=== PATIENT | male | born 1960 | race Caucasian/White ===

== ENCOUNTER 2016-12-24 07:11 | Outpatient (CLI) | payer BC ==
[~2016-12-24] VITALS: Ht 177.8 cm; Wt 93.0 kg
[2016-12-24] MEDS ORDERED: METOPROLOL TART25 MG PO (09:09)
[2016-12-24] MEDS ORDERED: ELIQUIS5 MG PO (09:09)
[2016-12-24] MEDS ORDERED: PROTONIX40 MG PO (09:10)
[2016-12-24] MEDS ORDERED: MELOXICAM7.5 MG PO (09:10)
[2016-12-24] MEDS ORDERED: SYNJARDY (09:14)
[2016-12-24] MEDS ORDERED: LIPITOR TAB 2020 MG PO (09:15)
[2016-12-25] MEDS ORDERED: GLUCOPHAGE 500500 MG PO (13:53)
[2016-12-25] MEDS ORDERED: JARDIANCE10 MG PO (13:53)
== END 2016-12-25 14:11 | disposition home or self-care (01) ==
LOC: CATH 07:11 → M/S 11:45 → CATH 12-25 14:11
DX: I48.92 Unspecified atrial flutter (principal); I48.0 Paroxysmal atrial fibrillation; E11.9 Type 2 diabetes mellitus without complications; Z98.890 Other specified postprocedural states; E78.5 Hyperlipidemia, unspecified; Z79.84 Long term (current) use of oral hypoglycemic drugs; Z79.1 Long term (current) use of non-steroidal anti-inflammatories (NSAID); Z79.899 Other long term (current) drug therapy
CPT/HCPCS: 82962; 93005; 93609; 93621; 99152; 99153; C1730; C1733; C1766; J1200; J1644; J1742; J2250; J3010; J7040

== ENCOUNTER 2020-04-28 19:09 | Emergency (ER) | payer BC ==
[~2020-04-28 19:09] MED LIST: ELIQUIS5 MG PO; GLUCOPHAGE 500500 MG PO; JARDIANCE10 MG PO; LIPITOR TAB 2020 MG PO; MELOXICAM7.5 MG PO; METOPROLOL TART25 MG PO; PROTONIX40 MG PO; SYNJARDY
[2020-04-28 21:18] LABS: HEMOGLOBIN 17.1 gm/dl (14.0-17.5); RED BLOOD COUNT 5.55 M/UL (4.20-5.50); WHITE BLOOD COUNT 10.7 K/UL (4.5-11.0)
[2020-04-28 21:41] LABS: BUN/CREATININE RATIO 16 (0-10)
[2020-04-29] MEDS ORDERED: LODINE CAP 300300 MG PO (00:52)
[2020-04-29] MEDS ORDERED: BENTYL 20MG TAB20 MG PO (00:52)
[2020-04-29] MEDS ORDERED: ZOFRAN ODT 4 MG4 MG PO (00:52)
[2020-06-24] MEDS ORDERED: JANUVIA100 MG PO (08:42)
[2020-06-24] MEDS ORDERED: LEVOTHYROXINE25 MC1 PO (08:42)
[2020-06-24] MEDS ORDERED: ATORVASTATIN CA20 MG PO (08:42)
[2020-06-24] MEDS ORDERED: METOPROLOL TART25 MG PO (08:43)
[2020-06-24] MEDS ORDERED: MELOXICAM15 MG PO (08:43)
[2020-06-24] MEDS ORDERED: PROTONIX40 MG PO (08:44)
[2020-06-24] MEDS ORDERED: SYNJARDY PO (08:46)
[2020-06-24] MEDS ORDERED: XARELTO20 MG PO (08:46)
[2020-06-24] MEDS ORDERED: ZOLPIDEM TARTRAT5 MG PO (08:47)
[2020-06-24] MEDS ORDERED: PACERONE400 MG PO (11:07)
[2020-09-16] MEDS ORDERED: PACERONE200 MG PO (13:10)
[2020-09-16] MEDS ORDERED: SYNJARDY XR 251 EACH PO (13:11)
[2020-09-18] MEDS ORDERED: PERCOCET 5-3251 EACH PO (09:57)
== END 2020-04-29 01:05 | disposition home or self-care (01) ==
LOC: ER1 19:09
DX: K42.9 Umbilical hernia without obstruction or gangrene (principal); I48.91 Unspecified atrial fibrillation; E11.9 Type 2 diabetes mellitus without complications; Z90.49 Acquired absence of other specified parts of digestive tract; Z79.01 Long term (current) use of anticoagulants
CPT/HCPCS: 80053; 85025; 99284; Q9967

== ENCOUNTER → 2020-06-24 | Outpatient (CLI) | payer BC ==
[~2020-06-24] MED LIST changes: +ATORVASTATIN CA20 MG PO; +BENTYL 20MG TAB20 MG PO; +JANUVIA100 MG PO; +LEVOTHYROXINE25 MC1 PO; +LODINE CAP 300300 MG PO; +MELOXICAM15 MG PO; +PACERONE200 MG PO; +PACERONE400 MG PO; +PERCOCET 5-3251 EACH PO; +SYNJARDY PO; +SYNJARDY XR 251 EACH PO; +XARELTO20 MG PO; +ZOFRAN ODT 4 MG4 MG PO; +ZOLPIDEM TARTRAT5 MG PO
[2020-06-24 08:09] LABS: HEMOGLOBIN 16.1 gm/dl (14.0-17.5); RED BLOOD COUNT 5.34 M/UL (4.20-5.50); WHITE BLOOD COUNT 8.9 K/UL (4.5-11.0)
[2020-06-24 08:26] LABS: BUN/CREATININE RATIO 18 (0-10)
== END ==
LOC: CATH 07:30
PROVIDERS: Internal Medicine Cardiovascular Disease
DX: I48.19 Other persistent atrial fibrillation (principal); I48.92 Unspecified atrial flutter; E11.9 Type 2 diabetes mellitus without complications; E78.5 Hyperlipidemia, unspecified; E03.9 Hypothyroidism, unspecified; K21.9 Gastro-esophageal reflux disease without esophagitis; Z79.01 Long term (current) use of anticoagulants; Z98.890 Other specified postprocedural states; Z79.84 Long term (current) use of oral hypoglycemic drugs; Z79.899 Other long term (current) drug therapy; Z82.49 Family history of ischemic heart disease and other diseases of the circulatory system
CPT/HCPCS: 36415; 80048; 82962; 85027; 92960; 93005; J1200; J1742; J2250; J2310; J3010; J7040

== ENCOUNTER → 2020-07-16 | Outpatient (CLI) | payer BC | LOC: HEART 5 08:52 | DX: I48.0 Paroxysmal atrial fibrillation (principal); I07.1 Rheumatic tricuspid insufficiency | CPT/HCPCS: 93306 ==

== ENCOUNTER → 2020-09-16 | Outpatient (CLI) | payer BC | LOC: OPSV2 12:30 | DX: Z01.810 Encounter for preprocedural cardiovascular examination (principal); K42.9 Umbilical hernia without obstruction or gangrene; I48.91 Unspecified atrial fibrillation | CPT/HCPCS: 93005 ==

== ENCOUNTER → 2020-09-18 | Day surgery (SDC) | payer BC | END | disposition home or self-care (01) | LOC: OR 06:45 | DX: K42.9 Umbilical hernia without obstruction or gangrene (principal); E11.9 Type 2 diabetes mellitus without complications; E78.5 Hyperlipidemia, unspecified; E03.9 Hypothyroidism, unspecified; I48.92 Unspecified atrial flutter; K21.9 Gastro-esophageal reflux disease without esophagitis; Z79.02 Long term (current) use of antithrombotics/antiplatelets; Z79.84 Long term (current) use of oral hypoglycemic drugs; Z79.899 Other long term (current) drug therapy | CPT/HCPCS: 82962; C1781; J0690; J1100; J1885; J2001; J2250; J2405; J2704; J2710; J3010; J7030; J7120 ==

== ENCOUNTER → 2021-02-11 | Outpatient (CLI) | payer BC | LOC: HEART 5 14:06 | DX: I48.0 Paroxysmal atrial fibrillation (principal); R06.02 Shortness of breath; Z79.899 Other long term (current) drug therapy | CPT/HCPCS: 94060; 94729 ==

== ENCOUNTER → 2021-12-16 | Outpatient (CLI) | payer BC | LOC: HEART 5 09:00 | DX: I48.92 Unspecified atrial flutter (principal); R55 Syncope and collapse; I48.0 Paroxysmal atrial fibrillation ==